=== PATIENT | female | born 1955 | race Two or more races ===

== ENCOUNTER 2022-01-24 20:39 | Emergency (ER) | payer OTHER ==
[~2022-01-24] VITALS: Ht 152.4 cm; Wt 81.8 kg
[2022-01-24 21:35] VITALS: BP 194/91
[2022-01-24] MEDS ORDERED: cloNIDine HCL 0.1 MG TAB PO ONE (21:45)
[2022-01-25] MEDS ORDERED: cloNIDine HCL 0.1 MG TAB PO ONE
[2022-01-25 00:06] LABS: Albumin 3.9 g/dL (3.4-5.0); Calcium 8.8 mg/dL (8.5-10.1); Potassium 4.7 mmol/L (3.5-5.1)
[2022-01-25 00:09] LABS: Bilirubin, Total 0.4 mg/dL (0.2-1.0); Total Protein 7.4 g/dL (6.4-8.2)
[2022-01-25 00:12] LABS: BUN/Creatinine Ratio 26.8
[2022-01-25 00:25] LABS: Basophils # (auto) 0 10 ^3/uL (0-0.2); Basophils % (auto) 0.6 % (0.0-2.0); Eosinophils # (auto) 0.1 10 ^3/uL (0-0.8); Eosinophils % (auto) 1.8 % (0.0-7.0); Hematocrit 42.9 % (36.0-46.0); Hemoglobin 14.7 g/dL (12.2-16.2); Lymphocytes # (auto) 2.2 10 ^3/uL (0.4-5.4); Lymphocytes % (auto) 30.6 % (10.0-50.0); Mean Corpuscular Hemoglobin 31.1 pg (28.0-32.0); Mean Corpuscular Hgb Conc. 34.2 g/dL (32.0-36.0); Mean Corpuscular Volume 90.9 fL (80.0-100.0); Monocytes # (auto) 0.5 10 ^3/uL (0-1.3); Monocytes % (auto) 6.7 % (0.0-12.0); Neutrophils # (auto) 4.4 10 ^3/uL (1.6-8.6); Neutrophils % (auto) 60.3 % (37.0-80.0); Nucleated Red Blood Cells % 0.2 %; Red Blood Cells 4.72 10^6/uL (4.0-5.20); White Blood Cell 7.3 10^3/uL (4.4-10.8)
== END 2022-01-25 00:41 | disposition left against medical advice (07) ==
LOC: ER 20:39
DX: M79.674 Pain in right toe(s) (principal); I10 Essential (primary) hypertension; E11.9 Type 2 diabetes mellitus without complications
CPT/HCPCS: 36415; 73620; 80053; 82962; 84484; 85025; 93005

== ENCOUNTER → 2022-05-20 | Outpatient (CLI) | payer OTHER ==
[2022-05-20 10:36] LABS: Basophils # (auto) 0 10 ^3/uL (0-0.2); Basophils % (auto) 0.3 % (0.0-2.0); Eosinophils # (auto) 0.1 10 ^3/uL (0-0.8); Eosinophils % (auto) 2.3 % (0.0-7.0); Hematocrit 42.2 % (36.0-46.0); Hemoglobin 14.9 g/dL (12.2-16.2); Lymphocytes % (auto) 34.1 % (10.0-50.0); Mean Corpuscular Hemoglobin 32.7 pg (28.0-32.0); Mean Corpuscular Hgb Conc. 35.2 g/dL (32.0-36.0); Monocytes # (auto) 0.4 10 ^3/uL (0-1.3); Monocytes % (auto) 6.6 % (0.0-12.0); Neutrophils # (auto) 3.4 10 ^3/uL (1.6-8.6); Neutrophils % (auto) 56.7 % (37.0-80.0); Nucleated Red Blood Cells % 0.1 %; Red Blood Cells 4.54 10^6/uL (4.0-5.20); Red Cell Distribution Width 12.6 % (11.8-14.3); White Blood Cell 5.9 10^3/uL (4.4-10.8)
[2022-05-20 10:49] LABS: Urine Bacteria FEW /hpf (None Seen); Urine Blood Negative /uL (Negative); Urine Specific Gravity 1.007 (1.001-1.035); Urine WBC 9 /hpf (0 - 5)
[2022-05-20 10:56] LABS: Potassium 3.8 mmol/L (3.5-5.1)
[2022-05-20 11:03] LABS: Albumin 3.7 g/dL (3.4-5.0); BUN/Creatinine Ratio 25.9 (10.0-20.0); Bilirubin, Total 0.6 mg/dL (0.2-1.0); Calcium 9.1 mg/dL (8.5-10.1); Total Protein 7.3 g/dL (6.4-8.2); Uric Acid 4.3 mg/dL (2.6-6.0)
== END | disposition home or self-care (01) ==
LOC: LAB 09:26
PROVIDERS: ATTEND Internal Medicine
DX: R78.89 Finding of other specified substances, not normally found in blood (principal); R68.89 Other general symptoms and signs; R73.09 Other abnormal glucose; E61.2 Magnesium deficiency; R94.6 Abnormal results of thyroid function studies; E79.0 Hyperuricemia without signs of inflammatory arthritis and tophaceous disease; R82.79 Other abnormal findings on microbiological examination of urine; D51.9 Vitamin B12 deficiency anemia, unspecified; R82.90 Unspecified abnormal findings in urine
CPT/HCPCS: 36415; 80053; 80061; 81001; 82306; 82607; 83036; 83735; 84443; 84550; 85025; 87086

== ENCOUNTER 2022-11-29 10:23 | Emergency (ER) | payer OTHER ==
[~2022-11-29] VITALS: Ht 144.8 cm; Wt 75.0 kg
[2022-11-29 11:07] LABS: Urine Bacteria FEW /hpf (None Seen); Urine Blood Negative /uL (Negative); Urine Clarity Clear (Clear); Urine Protein, UAD TRACE (Negative); Urine Urobilinogen Normal (Negative); Urine WBC 25 /hpf (0 - 5); Urine pH 6.5 (5.0-8.0)
[2022-11-29 11:08] LABS: Urine Color Yellow (Yellow)
[2022-11-29 11:31] VITALS: BP 161/83; PULSE 117; RESP 18; TEMP 98.7; O2SAT 97
[2022-11-29] MEDS ORDERED: SODIUM CHLORIDE 0.9% 1,000 ML IV ONE (11:45)
[2022-11-29] MEDS ORDERED: cefTRIAXone 1GM/50ML D5W 50 ML IV ONE (11:45)
[2022-11-29 12:21] LABS: Alanine Aminotransferase 25 U/L (7-40); Alkaline Phosphatase 69 U/L (46-116); Anion Gap 8 (5-15); BUN/Creatinine Ratio 12.2 (10.0-20.0); Bilirubin, Total 0.6 mg/dL (0.2-1.0); Blood Urea Nitrogen 9 mg/dL (9-23); Calcium 9.2 mg/dL (8.5-10.1); Carbon Dioxide 25 mmol/L (20-30); Chloride 101 mmol/L (98-107); Glucose 388 mg/dL (74-106); Potassium 4.3 mmol/L (3.5-5.1); Sodium 134 mmol/L (136-145); Total Protein 7.4 g/dL (5.7-8.2)
[2022-11-29 12:28] LABS: Basophils # (auto) 0 10 ^3/uL (0-0.2); Basophils % (auto) 0.5 % (0.0-2.0); Eosinophils # (auto) 0.1 10 ^3/uL (0-0.8); Eosinophils % (auto) 1.5 % (0.0-7.0); Lymphocytes # (auto) 2.2 10 ^3/uL (0.4-5.4); Lymphocytes % (auto) 27.3 % (10.0-50.0); Mean Corpuscular Hemoglobin 31.8 pg (28.0-32.0); Mean Corpuscular Hgb Conc. 34.1 g/dL (32.0-36.0); Mean Corpuscular Volume 93.3 fL (80.0-100.0); Monocytes # (auto) 0.4 10 ^3/uL (0-1.3); Monocytes % (auto) 5.1 % (0.0-12.0); Neutrophils # (auto) 5.2 10 ^3/uL (1.6-8.6); Neutrophils % (auto) 65.6 % (37.0-80.0); Nucleated Red Blood Cells % 0.1 %; Red Blood Cells 5.04 10^6/uL (4.0-5.20); Red Cell Distribution Width 12.9 % (11.8-14.3); White Blood Cell 7.9 10^3/uL (4.4-10.8)
[2022-11-29 12:31] LABS: Albumin 4.5 g/dL (3.2-4.8)
[2022-11-29 12:36] LABS: Aspartate Aminotransferase 23 U/L (13-40)
[2022-11-29] MEDS ORDERED: InsuLIN REG 1unit/0.01ml Soln (100units/ml) IV ONE ×2 (12:45→14:00)
[2022-11-29] MEDS ORDERED: CIPR-173 PO (12:52)
[2022-11-29] MEDS ORDERED: FLUC150T38 PO (12:52)
[2022-11-29] MEDS ORDERED: ACET-1080 PO (12:52)
== END 2022-11-29 14:39 | disposition home or self-care (01) ==
LOC: ER 10:23
DX: N39.0 Urinary tract infection, site not specified (principal); E11.65 Type 2 diabetes mellitus with hyperglycemia; I10 Essential (primary) hypertension
CPT/HCPCS: 36415; 80053; 81001; 82962; 85025; 96365; 96375; 99284; J0696; J1815; J7030

== ENCOUNTER → 2022-12-09 | Outpatient (CLI) | payer OTHER ==
[~2022-12-09] MED LIST: ACET-1080 PO; CIPR-173 PO; FLUC150T38 PO
[2022-12-09 10:02] LABS: Basophils # (auto) 0 10 ^3/uL (0-0.2); Basophils % (auto) 0.4 % (0.0-2.0); Eosinophils # (auto) 0.1 10 ^3/uL (0-0.8); Eosinophils % (auto) 1.2 % (0.0-7.0); Hematocrit 43.3 % (36.0-46.0); Hemoglobin 14.9 g/dL (12.2-16.2); Lymphocytes # (auto) 2.3 10 ^3/uL (0.4-5.4); Lymphocytes % (auto) 37.2 % (10.0-50.0); Mean Corpuscular Hgb Conc. 34.4 g/dL (32.0-36.0); Monocytes # (auto) 0.4 10 ^3/uL (0-1.3); Monocytes % (auto) 7.2 % (0.0-12.0); Neutrophils # (auto) 3.3 10 ^3/uL (1.6-8.6); Nucleated Red Blood Cells % 0.1 %; Red Blood Cells 4.66 10^6/uL (4.0-5.20); Red Cell Distribution Width 12.6 % (11.8-14.3); White Blood Cell 6.2 10^3/uL (4.4-10.8)
[2022-12-09 10:16] LABS: Urine Bacteria NONE SEEN /hpf (None Seen); Urine Blood Negative /uL (Negative); Urine Budding Yeast FEW /hpf (None Seen); Urine Clarity HAZY (Clear); Urine Protein, UAD Negative (Negative); Urine Specific Gravity 1.004 (1.001-1.035); Urine Urobilinogen Normal (Negative); Urine WBC 31 /hpf (0 - 5); Urine pH 6.5 (5.0-8.0)
[2022-12-09 10:21] LABS: Urine Color Straw (Yellow)
[2022-12-09 10:40] LABS: Alanine Aminotransferase 27 U/L (7-40); Albumin 4.5 g/dL (3.2-4.8); Alkaline Phosphatase 56 U/L (46-116); Anion Gap 9 (5-15); BUN/Creatinine Ratio 13.1 (10.0-20.0); Blood Urea Nitrogen 8 mg/dL (9-23); Calcium 9.3 mg/dL (8.5-10.1); Carbon Dioxide 27 mmol/L (20-30); Chloride 104 mmol/L (98-107); Glucose 146 mg/dL (74-106); LDL Cholesterol 119 mg/dL (< 100); Potassium 3.7 mmol/L (3.5-5.1); Sodium 140 mmol/L (136-145); Triglycerides 106 mg/dL (< 150)
[2022-12-09 10:41] LABS: Aspartate Aminotransferase 23 U/L (13-40); Bilirubin, Total 0.7 mg/dL (0.2-1.0); Cholesterol 179 mg/dL (< 200); HDL Cholesterol 39 mg/dL (40-59); Total Protein 7.2 g/dL (5.7-8.2)
[2022-12-09 10:43] LABS: Folate (Folic Acid) 17.06 ng/mL (>5.38)
[2022-12-09 11:34] LABS: Uric Acid 5.1 mg/dL (3.1-7.8)
[2022-12-09 11:35] LABS: Magnesium 1.5 mg/dL (1.6-2.6)
== END | disposition home or self-care (01) ==
LOC: LAB 09:12
PROVIDERS: ATTEND Internal Medicine
DX: E61.2 Magnesium deficiency (principal); R78.89 Finding of other specified substances, not normally found in blood; R68.89 Other general symptoms and signs; E78.41 Elevated Lipoprotein(a); R94.6 Abnormal results of thyroid function studies; E79.0 Hyperuricemia without signs of inflammatory arthritis and tophaceous disease; E85.9 Amyloidosis, unspecified; R82.991 Hypocitraturia; R82.90 Unspecified abnormal findings in urine; R82.79 Other abnormal findings on microbiological examination of urine; D51.9 Vitamin B12 deficiency anemia, unspecified
CPT/HCPCS: 36415; 80053; 80061; 81001; 82306; 82607; 82746; 83036; 83735; 84443; 84550; 85025; 87086

== ENCOUNTER → 2023-01-05 | Outpatient (CLI) | payer OTHER | END | disposition home or self-care (01) | LOC: LAB 15:07 | PROVIDERS: ATTEND Nurse Practitioner Family | DX: N76.0 Acute vaginitis (principal); N39.0 Urinary tract infection, site not specified | CPT/HCPCS: 87086 ==

== ENCOUNTER → 2023-02-11 | Outpatient (CLI) | payer OTHER ==
[2023-02-11 09:14] LABS: Basophils # (auto) 0 10 ^3/uL (0-0.2); Basophils % (auto) 0.5 % (0.0-2.0); Eosinophils # (auto) 0.2 10 ^3/uL (0-0.8); Eosinophils % (auto) 1.9 % (0.0-7.0); Hematocrit 44.1 % (36.0-46.0); Hemoglobin 15.1 g/dL (12.2-16.2); Lymphocytes # (auto) 2.8 10 ^3/uL (0.4-5.4); Lymphocytes % (auto) 34.5 % (10.0-50.0); Mean Corpuscular Hemoglobin 31.7 pg (28.0-32.0); Mean Corpuscular Hgb Conc. 34.2 g/dL (32.0-36.0); Mean Corpuscular Volume 92.6 fL (80.0-100.0); Monocytes # (auto) 0.8 10 ^3/uL (0-1.3); Monocytes % (auto) 9.9 % (0.0-12.0); Neutrophils # (auto) 4.3 10 ^3/uL (1.6-8.6); Neutrophils % (auto) 53.2 % (37.0-80.0); Nucleated Red Blood Cells % 0.1 %; Red Blood Cells 4.76 10^6/uL (4.0-5.20); Red Cell Distribution Width 13.3 % (11.8-14.3); White Blood Cell 8.2 10^3/uL (4.4-10.8)
[2023-02-11 09:27] LABS: Urine Bacteria NONE SEEN /hpf (None Seen); Urine Blood Negative /uL (Negative); Urine Clarity Clear (Clear); Urine Protein, UAD Negative (Negative); Urine Urobilinogen Normal (Negative); Urine WBC 7 /hpf (0 - 5); Urine pH 6.5 (5.0-8.0)
[2023-02-11 09:37] LABS: Urine Color Straw (Yellow)
[2023-02-11 09:42] LABS: Alanine Aminotransferase 21 U/L (7-40); Albumin 4.5 g/dL (3.2-4.8); Alkaline Phosphatase 55 U/L (46-116); Anion Gap 7 (5-15); Aspartate Aminotransferase 18 U/L (13-40); BUN/Creatinine Ratio 15.3 (10.0-20.0); Bilirubin, Total 0.8 mg/dL (0.2-1.0); Blood Urea Nitrogen 11 mg/dL (9-23); Calcium 9.4 mg/dL (8.5-10.1); Carbon Dioxide 27 mmol/L (20-30); Chloride 102 mmol/L (98-107); Cholesterol 206 mg/dL (< 200); Glucose 165 mg/dL (74-106); HDL Cholesterol 40 mg/dL (40-59); LDL Cholesterol 151 mg/dL (< 100); Sodium 136 mmol/L (136-145); Total Protein 7.2 g/dL (5.7-8.2); Triglycerides 135 mg/dL (< 150)
[2023-02-11 11:01] LABS: Uric Acid 4.9 mg/dL (3.1-7.8)
[2023-02-11 11:02] LABS: Magnesium 1.7 mg/dL (1.6-2.6)
[2023-02-11 11:09] LABS: Folate (Folic Acid) 22.36 ng/mL (>5.38)
== END | disposition home or self-care (01) ==
LOC: LAB 08:58
PROVIDERS: ATTEND Internal Medicine
DX: E61.2 Magnesium deficiency (principal); E78.9 Disorder of lipoprotein metabolism, unspecified; R68.89 Other general symptoms and signs; R94.6 Abnormal results of thyroid function studies; E79.0 Hyperuricemia without signs of inflammatory arthritis and tophaceous disease; R82.991 Hypocitraturia; R82.90 Unspecified abnormal findings in urine; R82.79 Other abnormal findings on microbiological examination of urine; E85.9 Amyloidosis, unspecified; D51.9 Vitamin B12 deficiency anemia, unspecified
CPT/HCPCS: 36415; 80053; 80061; 81001; 82306; 82607; 82746; 83036; 83735; 84443; 84550; 85025; 87086

== ENCOUNTER → 2023-06-12 | Outpatient (CLI) | payer OTHER ==
[2023-06-12 14:23] LABS: Urine Bacteria None Seen /hpf (None Seen)
[2023-06-12 14:31] LABS: Urine Blood Negative /uL (Negative); Urine Clarity Clear (Clear); Urine Color Light-Yellow (Yellow); Urine Protein, UAD Negative (Negative); Urine Urobilinogen Normal (Negative); Urine WBC 2 /hpf (0 - 5)
== END | disposition home or self-care (01) ==
LOC: LAB 14:17
PROVIDERS: ATTEND Specialist
DX: E11.65 Type 2 diabetes mellitus with hyperglycemia (principal); N39.0 Urinary tract infection, site not specified
CPT/HCPCS: 81001; 87086

== ENCOUNTER → 2023-09-14 | Outpatient (CLI) | payer OTHER ==
[2023-09-14 09:31] LABS: Urine Bacteria None Seen /hpf (None Seen)
[2023-09-14 09:36] LABS: Basophils # (auto) 0 10 ^3/uL (0-0.2); Basophils % (auto) 0.4 % (0.0-2.0); Eosinophils # (auto) 0.2 10 ^3/uL (0-0.8); Eosinophils % (auto) 2.3 % (0.0-7.0); Hematocrit 44.7 % (36.0-46.0); Hemoglobin 15.1 g/dL (12.2-16.2); Lymphocytes # (auto) 3.7 10 ^3/uL (0.4-5.4); Lymphocytes % (auto) 37.5 % (10.0-50.0); Mean Corpuscular Hemoglobin 31.4 pg (28.0-32.0); Mean Corpuscular Hgb Conc. 33.8 g/dL (32.0-36.0); Mean Corpuscular Volume 92.8 fL (80.0-100.0); Monocytes # (auto) 0.7 10 ^3/uL (0-1.3); Monocytes % (auto) 7.2 % (0.0-12.0); Neutrophils # (auto) 5.2 10 ^3/uL (1.6-8.6); Neutrophils % (auto) 52.6 % (37.0-80.0); Red Blood Cells 4.82 10^6/uL (4.0-5.20); Red Cell Distribution Width 13.1 % (11.8-14.3); White Blood Cell 9.9 10^3/uL (4.4-10.8)
[2023-09-14 09:40] LABS: Urine Blood Negative /uL (Negative); Urine Clarity Clear (Clear); Urine Protein, UAD Negative (Negative); Urine Specific Gravity 1.004 (1.001-1.035); Urine Urobilinogen Normal (Negative); Urine WBC 1 /hpf (0 - 5)
[2023-09-14 09:45] LABS: Urine Color STRAW (Yellow)
[2023-09-14 10:37] LABS: Alanine Aminotransferase 19 U/L (7-40); Albumin 4.6 g/dL (3.2-4.8); Alkaline Phosphatase 61 U/L (46-116); Anion Gap 9 (5-15); Aspartate Aminotransferase 15 U/L (13-40); BUN/Creatinine Ratio 22.6 (10.0-20.0); Bilirubin, Total 0.6 mg/dL (0.2-1.0); Blood Urea Nitrogen 14 mg/dL (9-23); Calcium 9.7 mg/dL (8.7-10.4); Carbon Dioxide 24 mmol/L (20-30); Chloride 107 mmol/L (98-107); Cholesterol 184 mg/dL (< 200); Glucose 106 mg/dL (74-106); HDL Cholesterol 36 mg/dL (40-59); LDL Cholesterol 122 mg/dL (< 100); Potassium 4.1 mmol/L (3.5-5.1); Sodium 140 mmol/L (136-145); Total Protein 7.4 g/dL (5.7-8.2); Triglycerides 151 mg/dL (< 150)
[2023-09-14 10:48] LABS: Uric Acid 5.1 mg/dL (3.1-7.8)
[2023-09-14 11:01] LABS: Folate (Folic Acid) 12.85 ng/mL (>5.38)
== END | disposition home or self-care (01) ==
LOC: LAB 09:09
PROVIDERS: ATTEND Internal Medicine
DX: E11.65 Type 2 diabetes mellitus with hyperglycemia (principal); I10 Essential (primary) hypertension; E78.2 Mixed hyperlipidemia; E03.9 Hypothyroidism, unspecified; E66.09 Other obesity due to excess calories; M25.562 Pain in left knee; G89.29 Other chronic pain; Z68.34 Body mass index [BMI] 34.0-34.9, adult
CPT/HCPCS: 36415; 80053; 80061; 81001; 82306; 82607; 82746; 83036; 83735; 84443; 84550; 85025; 87086

== ENCOUNTER 2023-09-28 09:29 | Inpatient (IN) | payer OTHER ==
[~2023-09-28] VITALS: Ht 152.4 cm; Wt 77.8 kg
[~2023-09-28 09:29] MED LIST changes: +INSUINJ37 SC; +LATA0.008 EACHEYE
[2023-09-28 10:40] LABS: Basophils # (auto) 0 10 ^3/uL (0-0.2); Basophils % (auto) 0.2 % (0.0-2.0); Eosinophils # (auto) 0.1 10 ^3/uL (0-0.8); Eosinophils % (auto) 0.7 % (0.0-7.0); Hematocrit 44.1 % (36.0-46.0); Lymphocytes # (auto) 2.1 10 ^3/uL (0.4-5.4); Mean Corpuscular Hemoglobin 31.6 pg (28.0-32.0); Mean Corpuscular Hgb Conc. 34.1 g/dL (32.0-36.0); Mean Corpuscular Volume 92.5 fL (80.0-100.0); Monocytes # (auto) 0.6 10 ^3/uL (0-1.3); Monocytes % (auto) 4.8 % (0.0-12.0); Neutrophils # (auto) 8.9 10 ^3/uL (1.6-8.6); Neutrophils % (auto) 76.3 % (37.0-80.0); Platelet Count (auto) 228 10^3/uL (140-450); Red Blood Cells 4.76 10^6/uL (4.0-5.20); White Blood Cell 11.7 10^3/uL (4.4-10.8)
[2023-09-28 10:56] LABS: Chloride 104 mmol/L (98-107); INR 1.01 (0.9-1.15); Partial Thromboplastin Time 24.7 SEC (24.5-34.5); Prothrombin Time 10.7 sec (9.3-11.8); Sodium 134 mmol/L (136-145)
[2023-09-28 10:57] LABS: Anion Gap 2 (5-15); Calcium 9.6 mg/dL (8.7-10.4); Carbon Dioxide 28 mmol/L (20-30)
[2023-09-28 11:02] LABS: BUN/Creatinine Ratio 20.6 (10.0-20.0); Blood Urea Nitrogen 14 mg/dL (9-23); Glucose 255 mg/dL (74-106)
[2023-09-28 13:09] LABS: Urine Bacteria None Seen /hpf (None Seen)
[2023-09-28 13:30] LABS: Urine Blood Negative /uL (Negative); Urine Clarity Clear (Clear); Urine Color Yellow (Yellow); Urine Protein, UAD Negative (Negative); Urine Specific Gravity 1.023 (1.001-1.035); Urine Urobilinogen Normal (Negative); Urine WBC 9 /hpf (0 - 5)
[2023-09-28 14:27] VITALS: PULSE 100; RESP 13; O2SAT 92
[2023-09-28] MEDS ORDERED: DEXTROSE (50%) 50ML SYRG IV PRN (15:00)
[2023-09-28] MEDS: cefTRIAXone 1GM/50ML D5W 50 ML IV ONE (15:00)
[2023-09-28] MEDS: SODIUM CHLORIDE 0.9% 1,000 ML IV SCH (15:00)
[2023-09-28] MEDS ORDERED: ONDANSETRON HCL 4 MG/2 ML VIAL IV PRN (15:00)
[2023-09-28] MEDS ORDERED: hydrALAZINE HCL 20 MG/ML VL IV PRN (15:00)
[2023-09-28] MEDS ORDERED: ACETAMINOPHEN 325 MG TAB PO PRN (15:00)
[2023-09-28] MEDS ORDERED: MORPHINE SULFATE INJ 2 MG/ml SYRG IV PRN (15:30)
[2023-09-28] MEDS ORDERED: NITROGLYCERIN 0.4 MG SL TAB SL PRN (15:30)
[2023-09-28] MEDS: HYDROcodone-ACET 5/325MG TAB PO PRN (15:52)
[2023-09-28] MEDS: InsuLIN REG 1unit/0.01ml Soln (100units/ml) SC SCH ×2 (17:00→22:26)
[2023-09-28] MEDS: ACCU-CHEK COMFORT CURVE STRIP VI SCH (17:00)
[2023-09-28 21:00] VITALS: PULSE 77; RESP 20; O2SAT 98
[2023-09-29 06:41] LABS: Basophils # (auto) 0 10 ^3/uL (0-0.2); Basophils % (auto) 0.3 % (0.0-2.0); Eosinophils # (auto) 0.2 10 ^3/uL (0-0.8); Eosinophils % (auto) 2.1 % (0.0-7.0); Hematocrit 39.9 % (36.0-46.0); Hemoglobin 13.6 g/dL (12.2-16.2); Lymphocytes # (auto) 2.2 10 ^3/uL (0.4-5.4); Lymphocytes % (auto) 27.5 % (10.0-50.0); Mean Corpuscular Hemoglobin 31.8 pg (28.0-32.0); Mean Corpuscular Hgb Conc. 34.1 g/dL (32.0-36.0); Mean Corpuscular Volume 93.2 fL (80.0-100.0); Monocytes # (auto) 0.5 10 ^3/uL (0-1.3); Neutrophils # (auto) 5.2 10 ^3/uL (1.6-8.6); Neutrophils % (auto) 64.1 % (37.0-80.0); Platelet Count (auto) 194 10^3/uL (140-450); Red Blood Cells 4.28 10^6/uL (4.0-5.20); White Blood Cell 8.2 10^3/uL (4.4-10.8)
[2023-09-29 06:54] LABS: Alanine Aminotransferase 16 U/L (7-40); Albumin 3.8 g/dL (3.2-4.8); Alkaline Phosphatase 51 U/L (46-116); Anion Gap 6 (5-15); Aspartate Aminotransferase 12 U/L (13-40); Blood Urea Nitrogen 13 mg/dL (9-23); Calcium 9.1 mg/dL (8.7-10.4); Carbon Dioxide 26 mmol/L (20-30); Chloride 105 mmol/L (98-107); Glucose 186 mg/dL (74-106); Sodium 137 mmol/L (136-145); Total Protein 6.6 g/dL (5.7-8.2)
[2023-09-29] MEDS ORDERED: LEVO50TA7 PO (08:31)
[2023-09-29] MEDS ORDERED: LEVO75TA6 PO (08:31)
[2023-09-29] MEDS ORDERED: GLIP10TA9 PO (08:31)
[2023-09-29] MEDS ORDERED: ROSU40TA47 PO (08:31)
[2023-09-29] MEDS ORDERED: AMLO1TAB22 PO (08:31)
[2023-09-29] MEDS ORDERED: MET50T PO (08:31)
[2023-09-29 09:30] VITALS: PULSE 92
[2023-09-29 09:44] LABS: Magnesium 1.8 mg/dL (1.6-2.6)
[2023-09-29 09:53] LABS: INR 1.04 (0.9-1.15)
[2023-09-29] MEDS: INSULIN LANTUS (GLARGINE) 1 /0.01ml (100units/ml) SC SCH ×2 (10:00→21:34)
[2023-09-29] MEDS: ENOXAPARIN SOD 40 MG/0.4 ML SYRINGE SC SCH (11:59)
[2023-09-29] MEDS: cefTRIAXone 1GM/50ML D5W 50 ML IV SCH (12:05)
[2023-09-29 12:49] LABS: Free T3 2.99 pg/mL (2.3-4.2)
[2023-09-29 12:50] LABS: Free T4 (Free Thyroxine) 0.83 ng/dL (0.89-1.76)
[2023-09-29 13:00] VITALS: BP 125/74; PULSE 92; RESP 21; TEMP 97.6; O2SAT 94
[2023-09-29] MEDS: LEVOTHYROXINE SODIUM 25 MCG TAB PO SCH (13:16)
[2023-09-29 17:00] VITALS: BP 141/75; PULSE 92; RESP 19; TEMP 98.2; O2SAT 94
[2023-09-29 20:00] VITALS: PULSE 86
[2023-09-29] MEDS: LATANOPROST 0.005 % OPTH(EYE) SOL 2.5ML EACHEYE SCH (20:59)
[2023-09-29 21:00] VITALS: BP 122/64; PULSE 87; RESP 19; TEMP 99.3; O2SAT 91
[2023-09-29] MEDS: ATORVASTATIN 20 MG TAB PO SCH (21:15)
[2023-09-29] MEDS: METOPROLOL TARTRATE 50 MG TAB PO SCH (21:17)
[2023-09-29] MEDS: ERGOCALCIFEROL 50,000 UNIT(1.25MG) CAP PO SCH (21:43)
[2023-09-30] VITALS (11 sets, daily range): BP systolic 99–118; BP diastolic 32–73; PULSE 63–94; RESP 17–20; TEMP 98.1–98.7; O2SAT 87–100
[2023-09-30] MEDS: LEVOTHYROXINE SODIUM 25 MCG TAB PO SCH (05:17)
[2023-09-30] MEDS: LEVOTHYROXINE SODIUM 100 MCG TAB PO SCH (05:17)
[2023-09-30] MEDS ORDERED: LEVOTHYROXINE SODIUM 25 MCG TAB PO SCH (06:00)
[2023-09-30 08:42] LABS: Basophils # (auto) 0 10 ^3/uL (0-0.2); Basophils % (auto) 0.4 % (0.0-2.0); Eosinophils # (auto) 0.2 10 ^3/uL (0-0.8); Eosinophils % (auto) 2.5 % (0.0-7.0); Hematocrit 41.7 % (36.0-46.0); Hemoglobin 14.2 g/dL (12.2-16.2); Lymphocytes # (auto) 1.9 10 ^3/uL (0.4-5.4); Mean Corpuscular Hemoglobin 31.6 pg (28.0-32.0); Mean Corpuscular Hgb Conc. 33.9 g/dL (32.0-36.0); Monocytes # (auto) 0.6 10 ^3/uL (0-1.3); Neutrophils # (auto) 6.9 10 ^3/uL (1.6-8.6); Neutrophils % (auto) 71.1 % (37.0-80.0); Platelet Count (auto) 192 10^3/uL (140-450); Red Blood Cells 4.49 10^6/uL (4.0-5.20); Red Cell Distribution Width 12.9 % (11.8-14.3); White Blood Cell 9.7 10^3/uL (4.4-10.8)
[2023-09-30 08:50] LABS: Chloride 107 mmol/L (98-107); Sodium 137 mmol/L (136-145)
[2023-09-30 08:51] LABS: Anion Gap 4 (5-15); Carbon Dioxide 26 mmol/L (20-30)
[2023-09-30 08:52] LABS: Calcium 9.2 mg/dL (8.7-10.4)
[2023-09-30 08:56] LABS: BUN/Creatinine Ratio 18.3 (10.0-20.0); Blood Urea Nitrogen 11 mg/dL (9-23); Glucose 184 mg/dL (74-106)
[2023-09-30] MEDS: INSULIN LANTUS (GLARGINE) 1 /0.01ml (100units/ml) SC SCH (10:00)
[2023-09-30] MEDS: amLODIPine BESYLATE 5 MG TAB PO SCH (10:08)
[2023-09-30] MEDS: HYDROmorphone HCL 2 MG/ML VL/or syr IV ONE (11:46)
[2023-09-30 22:05] LABS: Basophils # (auto) 0 10 ^3/uL (0-0.2); Basophils % (auto) 0.4 % (0.0-2.0); Eosinophils # (auto) 0.2 10 ^3/uL (0-0.8); Eosinophils % (auto) 2.3 % (0.0-7.0); Hematocrit 37.5 % (36.0-46.0); Hemoglobin 12.5 g/dL (12.2-16.2); Lymphocytes # (auto) 1.5 10 ^3/uL (0.4-5.4); Lymphocytes % (auto) 14.9 % (10.0-50.0); Mean Corpuscular Hemoglobin 31.3 pg (28.0-32.0); Mean Corpuscular Hgb Conc. 33.5 g/dL (32.0-36.0); Mean Corpuscular Volume 93.6 fL (80.0-100.0); Monocytes # (auto) 0.7 10 ^3/uL (0-1.3); Neutrophils # (auto) 7.5 10 ^3/uL (1.6-8.6); Neutrophils % (auto) 75.4 % (37.0-80.0); Platelet Count (auto) 171 10^3/uL (140-450); Red Blood Cells 4.01 10^6/uL (4.0-5.20); Red Cell Distribution Width 12.8 % (11.8-14.3)
[2023-10-01 01:00] VITALS: BP 117/63; PULSE 83; RESP 17; TEMP 98.7; O2SAT 100
[2023-10-01 05:00] VITALS: BP 109/53; PULSE 69; RESP 18; TEMP 98.6; O2SAT 96
[2023-10-01 08:00] VITALS: BP 130/67; PULSE 78; RESP 16; TEMP 98.1; O2SAT 95
[2023-10-01] MEDS: DOCUSATE SOD 100 MG CAP PO PRN (08:58)
[2023-10-01 10:03] LABS: Hepatitis B Surface Antigen Negative (Negative)
[2023-10-01 10:24] LABS: Hepatitis C Antibody Negative (Negative)
[2023-10-01 10:43] VITALS: BP 130/65; PULSE 70; TEMP 36.7
[2023-10-01 12:00] VITALS: BP 128/62; PULSE 69; RESP 16; TEMP 97.8; O2SAT 97
[2023-10-01] MEDS ORDERED: APIX5TAB PO (14:14)
[2023-10-01] MEDS ORDERED: LEVO125T7 PO (14:14)
[2023-10-01] MEDS ORDERED: HYDR-4902 PO ×3 (15:28→15:32)
[2023-10-01 16:00] VITALS: BP 126/66; PULSE 76; RESP 16; TEMP 98.5; O2SAT 96
== END 2023-10-01 18:15 | disposition home health service (06) | DRG 536 ==
LOC: EDBD 09:29 → ER 09:29 → TELE 15:17 → TELE-WESTW 23:13 → TELE-CENTR 23:44 → TELE 09-29 03:02 → TELE-WESTW 09-29 09:04 → WEST WING 09-30 22:55
PROVIDERS: ADMIT Internal Medicine; ATTEND Internal Medicine
DX: S32.592A Other specified fracture of left pubis, initial encounter for closed fracture (principal); E11.65 Type 2 diabetes mellitus with hyperglycemia; I10 Essential (primary) hypertension; E03.9 Hypothyroidism, unspecified; E78.00 Pure hypercholesterolemia, unspecified; E55.9 Vitamin D deficiency, unspecified; E66.01 Morbid (severe) obesity due to excess calories; E78.5 Hyperlipidemia, unspecified; Z68.33 Body mass index [BMI] 33.0-33.9, adult; Z79.4 Long term (current) use of insulin; Z82.49 Family history of ischemic heart disease and other diseases of the circulatory system; Z80.8 Family history of malignant neoplasm of other organs or systems; W01.0XXA Fall on same level from slipping, tripping and stumbling without subsequent striking against object, initial encounter; Y93.89 Activity, other specified; Y92.89 Other specified places as the place of occurrence of the external cause; Y99.8 Other external cause status
CPT/HCPCS: 36415; 70450; 71045; 73502; 73700; 80048; 80053; 80061; 81001; 82306; 82607; 82962; 83735; 84439; 84443; 84481; 85025; 85379; 85610; 85730; 86803; 87086; 87340; 93005; 93306; 93886; 93970; 97110; 97116; 97162; 97530; G0378; J1815

== ENCOUNTER 2023-12-04 08:42 | Day surgery (SDC) | payer OTHER ==
[2023-12-02 14:55] LABS: Basophils # (auto) 0 10 ^3/uL (0-0.2); Basophils % (auto) 0.3 % (0.0-2.0); Eosinophils # (auto) 0.3 10 ^3/uL (0-0.8); Eosinophils % (auto) 3.7 % (0.0-7.0); Hematocrit 44.1 % (36.0-46.0); Hemoglobin 15.2 g/dL (12.2-16.2); Lymphocytes # (auto) 3.5 10 ^3/uL (0.4-5.4); Lymphocytes % (auto) 38.5 % (10.0-50.0); Mean Corpuscular Hemoglobin 31.1 pg (28.0-32.0); Mean Corpuscular Hgb Conc. 34.4 g/dL (32.0-36.0); Mean Corpuscular Volume 90.4 fL (80.0-100.0); Monocytes # (auto) 0.6 10 ^3/uL (0-1.3); Neutrophils # (auto) 4.6 10 ^3/uL (1.6-8.6); Neutrophils % (auto) 50.5 % (37.0-80.0); Nucleated Red Blood Cells % 0.1 %; Platelet Count (auto) 204 10^3/uL (140-450); Red Blood Cells 4.88 10^6/uL (4.0-5.20); White Blood Cell 9.1 10^3/uL (4.4-10.8)
[2023-12-02 15:15] LABS: INR 1.04 (0.9-1.15); Partial Thromboplastin Time 25.6 SEC (24.5-34.5)
[2023-12-02 15:28] LABS: Alanine Aminotransferase 22 U/L (7-40); Albumin 4.5 g/dL (3.2-4.8); Alkaline Phosphatase 89 U/L (46-116); Anion Gap 6 (5-15); Aspartate Aminotransferase 17 U/L (13-40); BUN/Creatinine Ratio 16.2 (10.0-20.0); Bilirubin, Total 0.5 mg/dL (0.2-1.0); Blood Urea Nitrogen 11 mg/dL (9-23); Calcium 10.1 mg/dL (8.7-10.4); Carbon Dioxide 28 mmol/L (20-31); Chloride 105 mmol/L (98-107); Glucose 144 mg/dL (74-106); Potassium 3.9 mmol/L (3.5-5.1); Sodium 139 mmol/L (136-145); Total Protein 7.6 g/dL (5.7-8.2)
[~2023-12-04] VITALS: Ht 149.9 cm; Wt 77.1 kg
[~2023-12-04 08:42] MED LIST changes: +AMLO1TAB22 PO; +APIX5TAB PO; -CIPR-173 PO; -FLUC150T38 PO; +GLIP10TA9 PO; +LEVO125T7 PO; +MET50T PO; +ROSU40TA47 PO
[2023-12-04] MEDS ORDERED: SODIUM CHLORIDE LOCK 10 ML ONE (11:06)
[2023-12-04 11:11] VITALS: O2SAT 100
[2023-12-04] MEDS: fentaNYL CITRATE 100 MCG/2 ML VL ONE (11:13)
[2023-12-04] MEDS: MIDAZOLAM HCL 5 MG/ML-1ML VIAL ONE (11:13)
[2023-12-04 11:34] VITALS: RESP 13; TEMP 98.7; O2SAT 95
[2023-12-04 12:03] VITALS: BP 112/52; PULSE 68; RESP 19; O2SAT 95
--- NOTE | 2023-12-07 10:37 | DVHNC2 ---
Procedure - Date of procedure: 12/04/2023 PROCEDURE PERFORMED BY: Dr. Ken Denney PROCEDURE PERFORMED: 1.Colonoscopy with biopsy under moderate sedation REFERRING PROVIDER: Fred APODACA PRE-PROCEDURE DIAGNOSIS: COLON CANCER SCREENING POSTPROCEDURE DIAGNOSIS: 1. Internal external hemorrhoids 2. 3 mm rectal polyp, removed with biopsy forceps INDICATIONS FOR PROCEDURE: The patient is a 68-year-old female presents for outpatient colonoscopy for screening. MEDICATIONS USED: 3 mg of Versed and 50 mcg of fentanyl IV were given DETAILS OF THE PROCEDURE: Informed consent was obtained after risks benefits and alternatives were discussed at length with the patient. Patient gave consent to the procedure as well as the medication used for sedation. The patient was placed in the left lateral decubitus position. Digital rectal exam showed internal hemorrhoids and small external hemorrhoids.An Olympus variable torsion pediatric colonoscope was inserted into the rectum advanced to the cecum. The cecum was identified by the ileocecal valve and the appendiceal orifice. The scope was then withdrawn. The prep was fair with a small to medium amounts of stool. There were no large polyps, masses, strictures, arteriovenous malformations or diverticulosis seen. The patient had 1 small colon polyp in the rectum removed with biopsy forceps. colitis. Retroflexion showed internal hemorrhoids. More than 6 minutes withdrawal time was noted. The patient tolerated the procedure well. IMPRESSION: 1. One colon polyp removed with biopsy forceps completely. 2. Internal and external hemorrhoids RECOMMENDATIONS: 1. Avoid aspirin NSAIDs and anticoagulants for 2 days. 2. Follow up in [facility] Clinic for procedure and pathology results 3. Repeat colonoscopy in 3-5 years unless otherwise indicated 4. Follow up with primary care physician. I would like to thank Dr. Ibarra for this referral KEN DENNEY MD Dec 07, 2023 10:37
== END 2023-12-04 12:12 | disposition home or self-care (01) ==
LOC: GI 08:42
PROVIDERS: ATTEND Specialist
DX: Z12.11 Encounter for screening for malignant neoplasm of colon (principal); K62.1 Rectal polyp; K64.8 Other hemorrhoids; K64.4 Residual hemorrhoidal skin tags; E03.9 Hypothyroidism, unspecified; E11.9 Type 2 diabetes mellitus without complications; Z88.6 Allergy status to analgesic agent; Z98.890 Other specified postprocedural states; Z82.49 Family history of ischemic heart disease and other diseases of the circulatory system; Z79.4 Long term (current) use of insulin; Z98.41 Cataract extraction status, right eye; Z79.890 Hormone replacement therapy
CPT/HCPCS: 36415; 45380; 80053; 82962; 85025; 85610; 85730; 88305; J2250; J3010; 99152

== ENCOUNTER → 2024-07-01 | Outpatient (CLI) | payer OTHER ==
[2024-07-01 13:09] LABS: Anion Gap 8 (5-15); Carbon Dioxide 27 mmol/L (20-31); Chloride 103 mmol/L (98-107); Potassium 4.5 mmol/L (3.5-5.1); Sodium 138 mmol/L (136-145)
[2024-07-01 13:10] LABS: Calcium 9.7 mg/dL (8.7-10.4)
[2024-07-01 13:13] LABS: Creatinine, Urine 98.41 mg/dL (30.0-125.0)
[2024-07-01 13:15] LABS: BUN/Creatinine Ratio 15.8 (10.0-20.0); Blood Urea Nitrogen 12 mg/dL (9-23)
[2024-07-01 13:18] LABS: Glucose 343 mg/dL (74-106)
== END | disposition home or self-care (01) ==
LOC: LAB 11:45
PROVIDERS: ATTEND Internal Medicine
DX: E11.9 Type 2 diabetes mellitus without complications (principal)
CPT/HCPCS: 36415; 80048; 82043; 82570; 83036

== ENCOUNTER 2024-12-14 08:52 | Outpatient (CLI) | payer OTHER ==
[2024-12-14 09:50] LABS: Urine Protein, UAD Negative (Negative)
[2024-12-14 09:58] LABS: Alanine Aminotransferase 25 U/L (7-40); Albumin 4.3 g/dL (3.2-4.8); Alkaline Phosphatase 74 U/L (46-116); Anion Gap 9 (5-15); BUN/Creatinine Ratio 12.5 (10.0-20.0); Blood Urea Nitrogen 10 mg/dL (9-23); Calcium 9.1 mg/dL (8.7-10.4); Carbon Dioxide 26 mmol/L (20-31); Chloride 101 mmol/L (98-107); Magnesium 1.8 mg/dL (1.6-2.6); Potassium 4.6 mmol/L (3.5-5.1); Sodium 136 mmol/L (136-145); Total Protein 7.4 g/dL (5.7-8.2)
[2024-12-14 09:59] LABS: Bilirubin, Total 0.8 mg/dL (0.2-1.0); Cholesterol 198 mg/dL (< 200)
[2024-12-14 10:01] LABS: Glucose 337 mg/dL (74-106); HDL Cholesterol 38 mg/dL (40-59); Triglycerides 155 mg/dL (< 150)
[2024-12-14 10:14] LABS: Hematocrit 44.7 % (36.0-46.0); Hemoglobin 15.5 g/dL (12.2-16.2); Mean Corpuscular Hemoglobin 32.2 pg (28.0-32.0); Mean Corpuscular Volume 92.8 fL (80.0-100.0); Nucleated Red Blood Cells % 0.3 %
[2024-12-14 10:16] LABS: Uric Acid 3.4 mg/dL (3.1-7.8)
== END 2024-12-14 17:00 | disposition home or self-care (01) ==
LOC: LAB 08:52
PROVIDERS: ATTEND Internal Medicine
DX: E11.9 Type 2 diabetes mellitus without complications (principal); E78.49 Other hyperlipidemia; E61.2 Magnesium deficiency; E79.0 Hyperuricemia without signs of inflammatory arthritis and tophaceous disease; E55.9 Vitamin D deficiency, unspecified; D51.9 Vitamin B12 deficiency anemia, unspecified; R82.79 Other abnormal findings on microbiological examination of urine; R82.90 Unspecified abnormal findings in urine; R82.998 Other abnormal findings in urine; R94.6 Abnormal results of thyroid function studies; R68.89 Other general symptoms and signs
CPT/HCPCS: 36415; 80053; 80061; 81001; 82306; 82607; 82746; 83036; 83735; 84443; 84480; 84550; 85025; 87086